=== PATIENT | male | born 1975 | race Caucasian/White ===

== ENCOUNTER 2019-11-13 14:24 | Observation (INO) ==
[2019-11-13] MEDS ORDERED: ONDANSETRON INJ 2 MG/ML 2 ML VIAL IV STA (15:24)
[2019-11-13] MEDS ORDERED: SODIUM CHLORIDE 0.9% 1000ML 2,000 ML IV ONE (15:24)
[2019-11-13] MEDS ORDERED: KETOROLAC TROMETHAMINE 15 MG/ML VIAL IV ONE (15:24)
--- NOTE | 2019-11-13 15:24 | Emergency Department Note ---
Impression & Plan BRUNILDA (acute kidney injury), Abdominal pain, Vomiting, Diarrhea, BRBPR (bright red blood per rectum), Leukocytosis, Elevated BUN ED Provider Note NAME: NERISSA MARINELLI JR AGE: 44 SEX: M : 1975 ARRIVES VIA: Walk-In INFORMANT: Patient ED PROVIDER(S): Raffi Santos DO CHIEF COMPLAINT: N/V/D HPI: Patient is a 44-year-old male who presents the ER for nausea, vomiting and diarrhea. Everything started this morning at 8:30 AM while he was working for [employer]. He notes he had 2 episodes where he could not get off the toilet for over an hour where he had persistent diarrhea. He denies any chest pain shortness of breath. Denies any dizziness or lightheadedness. Denies any dysuria urgency or frequency. He did note some bright red blood throughout his last bowel movement. He admits to persistent vomiting throughout the day as well. He has been only able to keep down small amount of clear liquids. ROS: See above HPI for pertinent positives & negatives. A total of 10 systems reviewed and were otherwise negative. PAST MEDICAL HISTORY:See Below PAST SURGICAL HISTORY:Spinal surgery FAMILY HISTORY:See Below SOCIAL HISTORY:smoke HOME MEDICATIONS:See Below ALLERGIES:See Below VITALS:See Below PHYSICAL EXAMINATION: GENERAL: Sitting up in bed, alert, well appearing, well nourished, no distress, non-toxic EYE EXAM: normal conjunctiva. OROPHARYNX: mucous membranes are dry NECK: supple, no nuchal rigidity, no adenopathy, non-tender LUNGS: Clear to auscultation. Normal chest wall mechanics HEART: no murmurs, S1 normal and S2 normal ABDOMEN: abdomen soft, non-tender, normo-active bowel sounds, no masses, no rebound or guarding. BACK: Back is symmetrical on inspection and there is no deformity, no midline tenderness, no CVA tenderness. SKIN: no rashes and no bruising UPPER EXTREMITIES: upper extremities are grossly normal. LOWER EXTREMITIES: No pitting edema. NEURO EXAM: Normal sensorium, cranial nerves II-XII grossly intact, normal spee ch, no gross weakness of arms, no gross weakness of legs. MEDICAL DECISION MAKING: Patient is a 44-year-old male who presents the ER for nausea vomiting diarrhea. He has been having bright red blood per rectum as well. IV was established blood work was obtained. Labs show leukocytosis of 18,000. Hemoglobin at 19 which appears secondary to dehydration. BMP with a creatinine 1.96. Patient has never had any previous creatinine issues. LFTs bilirubin was unremarkable. Lipase was normal. UA was contaminated with multiple epithelial cells. CT abdomen pelvis was unremarkable. He was given at 2 L IV fluid and IV Zofran. Stool cultures and C. difficile were ordered. Patient was updated bedside discussed with the hospitalist for the BRUNILDA and having difficulty keeping oral in. Do favor bright red blood per rectum secondary to an internal hemorrhoid from the profuse diarrhea although it could be infectious and will await cultures. Triage Nursing notes reviewed. Prior medical records reviewed Vital Signs: reviewed and remarkable for no significant abnormalities Differential diagnosis: Differential diagnoses includes but is not limited to gastritis, peptic ulcer disease, GERD, gallbladder disease, pancreatitis, small bowel obstruction, acute coronary syndrome, pericarditis, ischemic bowel, irritable bowel disease, irritable bowel syndrome, appendicitis, diverticulitis, malignancy, hernia, urinary tract infection, torsion, [/ectopic (if female)], perforation, trauma, infectious. ER treatment provided: See below Diagnostics interpreted by me: ECG: none Cardiac Monitoring: An order was placed for continuous cardiac monitoring. The monitor shows a rate of 82 with sinus rhythm. Laboratory studies: As stated above and show below. Imaging studies: CT abdomen pelvis shows no acute pathology Consultation(s): Discussed with Dr. Long from not any hospitalist ED COURSE: Procedures: none Critical Care: None Past Med/Surg History Social History Preferred Language: Sinhala Feels Safe at Home: Yes Smoking Status: Current every day smoker Allergies Allergies Allergy/AdvReac Type Severity Reaction Status Date / Time No Known Allergies Allergy Unknown Verified 05/28/14 13:51 Home Meds Home Medications Medication Instructions Recorded Confirmed acetaminophen [Tylenol] 325 mg PO BID PRN 11/13/19 11/13/19 herbal drugs 5 cap PO BID 11/13/19 11/13/19 ibuprofen 600 mg PO BID PRN 11/13/19 11/13/19 Results & Data (ED) Vital Signs Vital Signs - 24 hr 11/13/19 14:43 11/13/19 15:38 11/13/19 15:50 Temperature 36.7 C Temperature Source Oral Pulse Rate 127 H 88 Respiratory Rate 20 26 H Respiratory Effort / Characteristics Non-Labored Respiratory Depth Normal Blood Pressure 115/78 112/76 Blood Pressure Mean 90 90 Blood Pressure Position Sitting Pulse Oximetry 96 97 Oxygen Delivery Method Room Air Room Air Sepsis Recent Fever Within 48 Hours No Sepsis New/Unexplained Change in Mental Status No Sepsis Action Taken by Nursing No Action Required 11/13/19 15:57 11/13/19 16:00 Temperature Temperature Source Pulse Rate 90 86 Respiratory Rate 25 H 26 H Respiratory Effort / Characteristics Respiratory Depth Blood Pressure 105/76 Blood Pressure Mean 81 Blood Pressure Position Pulse Oximetry Oxygen Delivery Method Sepsis Recent Fever Within 48 Hours Sepsis New/Unexplained Change in Mental Status Sepsis Action Taken by Nursing Laboratory Data Result diagrams: 11/13/19 15:35 11/13/19 15:35 Lab Results 11/13/19 11/13/19 11/13/19 Range/Units 15:35 15:35 15:35 WBC 18.21 H (4.8-10.8) K/uL RBC 6.11 H (4.7-6.1) M/uL Hgb 19.4 H (14.0-18.0) g/dL Hct 55.1 H (42-52) % MCV 90.2 (80-100) fL MCH 31.8 (25-34) pg MCHC 35.2 (32-36) g/dL RDW Std Deviation 44.9 (36.4-46.3) fL RDW Coeff of [place]ta 13.6 (11.5-14.5) % Plt Count 254 (130-400) K/uL MPV 10.3 (7.4-10.4) fL Immature Gran % (Auto) 0.6 % Neut % (Auto) 87.0 % Lymph % (Auto) 3.0 % Dewitt % (Auto) 9.1 % Eos % (Auto) 0.2 % Baso % (Auto) 0.1 % Immature Gran # (Auto) 0.11 H (0.00-0.02) K/uL Neut # (Auto) 15.85 H (1.4-6.5) K/uL Lymph # (Auto) 0.55 L (1.2-3.4) K/uL Dewitt # (Auto) 1.65 H (0.11-0.59) K/uL Eos # (Auto) 0.03 (0-0.5) K/uL Baso # (Auto) 0.02 (0-0.2) K/uL Sodium 136 (136-145) mmol/L Potassium 5.0 (3.5-5.1) mmol/L Chloride 107 (98-107) mmol/L Carbon Dioxide 21 (21-32) mmol/L Anion Gap 8.0 (3-11) BUN 29 H (7-18) mg/dl Creatinine 1.96 H (0.6-1.4) mg/dl Est Cr Clr Drug Dosing 39.9 ml/min Est GFR ( Amer) 46.5 Est GFR (Non-Af Amer) 40.1 BUN/Creatinine Ratio 14.6 (10-20) Glucose 123 H (70-99) mg/dl Calcium 10.0 (8.5-10.1) mg/dl Total Bilirubin 0.9 (0.2-1) mg/dl AST 20 (15-37) U/L ALT 49 (12-78) U/L Alkaline Phosphatase 73 (45-117) U/L Total Protein 9.6 H (6.4-8.2) gm/dl Albumin 5.1 H (3.4-5.0) gm/dl Globulin 4.5 H (2.5-4.0) gm/dl Albumin/Globulin Ratio 1.1 (0.9-2) Lipase 72 L (73-393) U/L Urine Color Dark Yellow Urine Appearance Turbid A (Clear) Urine pH 5.0 (4.5-7.5) Ur Specific Felch 1.030 (1.000-1.030) Urine Protein 1+ H (Negative) Urine Glucose (UA) Negative (Negative) Urine Ketones Trace H (Negative) Urine Blood Negative (Negative) Urine Nitrite Negative (Negative) Urine Bilirubin Negative (Negative) Urine Urobilinogen Negative (Negative) Ur Leukocyte Esterase Trace H (Negative) Urine WBC (Auto) 5-10 H (0-5) /hpf Urine RBC (Auto) 10-30 H (0-4) /hpf U Hyaline Cast (Auto) 0 (0-5) /lpf U Epithel Cells (Auto) >30 H (0-5) /lpf Urine Bacteria (Auto) Negative (Negative) Ur Renal Epithelial Cell Not Reportable Administered Medications Nicotine (Nicoderm Cq) 21 mg TD QAM OLGA Stop: 07/03/20 16:44 Last Admin: 11/13/19 17:08 Dose: 21 mg Documented by: [id number] Discontinued Medications Sodium Chloride (Nss 1000ml) 2,000 mls @ 999 mls/hr IV .Q2H1M ONE Stop: 11/13/19 17:24 Last Admin: 11/13/19 15:46 Dose: 999 mls/hr Documented by: [id number] Ketorolac Tromethamine (Toradol) 10 mg IV NOW ONE Stop: 11/13/19 15:25 Last Admin: 11/13/19 15:46 Dose: 10 mg Documented by: [id number] Ondansetron HCl (Zofran) 4 mg IV NOW STA Stop: 11/13/19 15:25 Last Admin: 11/13/19 15:46 Dose: 4 mg Documented by: [id number] Discharge Plan Visit Data Chief Complaint: GI Assessment Stated Complaint: VOMITING/DIARRHEA WITH BLOOD IN STOOL ED Provider: Raffi Santos Discharge Problem: BRUNILDA (acute kidney injury), Abdominal pain, Vomiting, Diarrhea, BRBPR (bright red blood per rectum), Leukocytosis, Elevated BUN Forms Stand Alone Forms: [facility] [employer] Prescriptions Prescriptions: No Action acetaminophen [Tylenol] 325 mg Tablet 325 mg PO BID PRN (Reason: Pain) RF: 0 ibuprofen 200 mg Tablet 600 mg PO BID PRN (Reason: Pain) RF: 0 herbal drugs Capsule 5 cap PO BID RF: 0 glucosamine-chondroitin 500-400 mg Capsule 1 cap PO BID RF: 0 Discharge Problem: Abdominal pain Qualifiers: Abdominal location: unspecified location Qualified Code(s): R10.9 - Unspecified abdominal pain Vomiting Qualifiers: Vomiting type: unspecified Vomiting Intractability: unspecified Nausea presence: with nausea Qualified Code(s): R11.2 - Nausea with vomiting, unspecified Diarrhea Qualifiers: Diarrhea type: unspecified type Qualified Code(s): R19.7 - Diarrhea, unspecified Leukocytosis Qualifiers: Leukocytosis type: unspecified Qualified Code(s): D72.829 - Elevated white blood cell count, unspecified
[2019-11-13 15:49] LABS: Basophils # (auto) 0.02 K/uL (0-0.2); Basophils % (auto) 0.1 %; Eosinophils # (auto) 0.03 K/uL (0-0.5); Eosinophils % (auto) 0.2 %; Hematocrit (blood only) 55.1 % (42-52); Hemoglobin 19.4 g/dL (14.0-18.0); Immature Granulocytes # (auto) 0.11 K/uL (0.00-0.02); Immature Granulocytes % (auto) 0.6 %; Lymphocytes # (auto) 0.55 K/uL (1.2-3.4); Mean Corpuscular Hemoglobin 31.8 pg (25-34); Mean Corpuscular Volume 90.2 fL (80-100); Mean Platelet Volume 10.3 fL (7.4-10.4); Monocytes # (auto) 1.65 K/uL (0.11-0.59); Monocytes % (auto) 9.1 %; Neutrophils # (auto) 15.85 K/uL (1.4-6.5); Platelet Count 254 K/uL (130-400); RDW Coefficient of Variation 13.6 % (11.5-14.5); RDW Standard Deviation 44.9 fL (36.4-46.3); Red Blood Count 6.11 M/uL (4.7-6.1); White Blood Count 18.21 K/uL (4.8-10.8)
[2019-11-13 15:56] LABS: Appearance Urine Turbid (Clear); Bacteria Urine Automated Negative (Negative); Blood Urine Negative (Negative); Color Urine Dark Yellow; Epithelial Cell Urine Auto >30 /lpf (0-5); Glucose Urine UA Negative (Negative); Ketones Urine Trace (Negative); Leukocyte Esterase Urine Trace (Negative); Nitrite Urine Negative (Negative); Protein Urine 1+ (Negative); Urobilinogen Urine Negative (Negative)
[2019-11-13 16:04] LABS: Mean Corpuscular Hgb Conc 35.2 g/dL (32-36)
[2019-11-13 16:07] LABS: Bilirubin Urine Negative (Negative); Ictotest Urine Negative (Negative)
[2019-11-13 16:08] LABS: Albumin Level 5.1 gm/dl (3.4-5.0); BUN Creatinine Ratio 14.6 (10-20); Creatinine Clr Calc Pharmacy 39.9 ml/min; Est GFR (African American) 46.5; Est GFR (Non-African American) 40.1
[2019-11-13 16:10] LABS: Albumin Globulin Ratio 1.1 (0.9-2); Bilirubin,Total 0.9 mg/dl (0.2-1); Globulin 4.5 gm/dl (2.5-4.0); Total Protein 9.6 gm/dl (6.4-8.2)
[2019-11-13 16:21] LABS: Cast Urine Automated 0 /lpf (0-5)
--- NOTE | 2019-11-13 16:39 | CT Scan Report ---
CT abd pelvis wo con CT DOSE: 309.29 mGy.cm HISTORY: Pain. Nausea. diffuse abd pain w/ gi bleed and darin TECHNIQUE: Multiaxial CT images of the abdomen and pelvis were performed without contrast. A dose lo wering technique was utilized adhering to the principles of ALARA. COMPARISON STUDY: None. FINDINGS: The lung bases are clear. The unenhanced liver, spleen, gallbladder, pancreas, kidneys, and adrenal glands are within normal limits. No bowel wall thickening or obstruction. The pelvic organs are unremarkable. No suspicious lytic or blastic osseous lesions. IMPRESSION: No significant abnormality identified within the abdomen or pelvis. ACT 112: Negative or not required by law. The above report was generated using voice recognition software. It may contain grammatical, syntax or spelling errors. Electronically signed by: Frank Ambrose M.D. 11/13/2019 4:38 PM
[2019-11-13] MEDS: NICOTINE 21 MG/24 HR TDSY TD SCH (17:08)
--- NOTE | 2019-11-13 17:55 | History & Physical Report ---
Date of Service November 13, 2019 Assessment & Plan (1) Diarrhea: Patient is admitted under obs. Concern over c diff colitis and covid, given his: -elevated procal. -Ddimer is elevated Lymphopenia and leukocytosis. will obtain covid testing. will place on IVF. will place on heparin as he is hemoconcentrated. (2) BRUNILDA (acute kidney injury): likely pre renal given his diarrhea. will continue to monitor. continue aggressive IV fluids. (3) Leukocytosis: Patient will be monitored. currently afebrile, and no longer tachycardic. will hold off further antibiotics. H/O lumbar back pain: controlled will monitor. dvt pro: heparin History of Present Illness Chief Complaint: vomiting and diarrhea Primary Care Provider: Ashanti Churchill 44 yo male with no signficant past medical history arrives to the hospital with acute diarrhea and vomiting. He reports yesterday he denied any symptoms and he was his usual self. He reports that this episode began this morning. He was working at [employer] and began to have nausea and vomiting. He then states from 9:00 to 10:00 he noted large amount of diarrhea and he had to stay on the toilet. This then repeated at 12:00 to 13:00. He noticed some blood in his stool. He called his life partner who is a pediatric nurse and recommended that he come to the hospital Patient came to the hospital for long bots of nausea vomiting and diarrhea. He denies any sick contacts. Allergies Allergy/AdvReac Type Severity Reaction Status Date / Time lactose AdvReac Gastrointestinal Unverified 11/13/19 17:30 Upset Home Medications Home Medications Medication Instructions Recorded Confirmed Type acetaminophen [Tylenol] 325 mg PO BID PRN 11/13/19 11/13/19 History glucosamine-chondroitin 1 cap PO BID 11/13/19 11/13/19 History herbal drugs 5 cap PO BID 11/13/19 11/13/19 History ibuprofen 600 mg PO BID PRN 11/13/19 11/13/19 History Past Med/Surg History Medical History (Updated 11/14/19 @ 08:00 by Steve Long) Lumbar stenosis Surgical History (Updated 11/14/19 @ 08:00 by Steve Long) S/P lumbar microdiscectomy Social History Preferred Language: Portuguese Beliefs That Will Affect Care: None Current Living Situation: Family Other Information That Helps Us Care for You: No Feels Safe at Home: Yes Safety Concerns: Feels Safe At This Time Smoking Status: Current every day smoker Hx Alcohol Use: No Hx Substance Use: No Review of Systems Constitutional: + fever; no sweats, no body aches, no malaise and no weakness Eyes: no blind spots and no diplopia Ear, Nose, Mouth, Throat: no ear pain, no ear trauma and no tinnitus Respiratory: no cough, no change in sputum and no dyspnea Cardiovascular: no chest pain Gastrointestinal: no abdominal pain Genitourinary: no dysuria Musculoskeletal: no back pain and no radicular pain Integumentary: no acne and no lesions Neurologic: no gait abnormality Psychiatric: no behavioral changes Physical Exam Constitutional: WD/WN, vitals as above well developed Eyes: PERRL, conjunctivae normal, anicteric sclerae ENMT: external ear and nose normal, oropharynx normal Neck: trachea midline, no thyromegaly Respiratory: normal respiratory effort, lungs clear to auscultation Cardiovascular: RRR, no murmur, no edema Gastrointestinal (Abdomen): normal bowel sounds, soft, nontender, no hepatosplenomegaly Musculoskeletal: no cyanosis or clubbing, extremities motor strength 5/5 Skin: no rashes, warm and dry Neurologic: PERRL, EOMI, accommodation nl, no face palsy, no dysarthria Psychiatric: A+Ox3, euthymic affect Results & Data Results & Data ([facility]) Vital Signs (Past 12 Hours) Vital Signs Temp Pulse Resp BP Pulse Ox 11/13/19 16:00 86 26 H 105/76 11/13/19 15:57 90 25 H 11/13/19 15:50 97 11/13/19 15:38 88 26 H 112/76 11/13/19 14:43 36.7 C 127 H 20 115/78 96 PG Care Time/CCT Total # of Minutes Spent Total Time Spent with Patient: Total time spent is greater than 50% in coordination of care (as documented) at patient's floor/unit and/or counseling patient: Coding Level of Care Code 44653 OBS Care - Level 3 Diagnoses Diarrhea R19.7 Diarrhea type: unspecified type BRUNILDA (acute kidney injury) N17.9 Leukocytosis D72.829 Leukocytosis type: unspecified (1) Diarrhea Diarrhea type: unspecified type Qualified Code(s): R19.7 - Diarrhea, unspecified (2) Leukocytosis Leukocytosis type: unspecified Qualified Code(s): D72.829 - Elevated white blood cell count, unspecified
[2019-11-13 18:43] LABS: D Dimer 1690 ug/L FEU (0-500)
[2019-11-13] MEDS ORDERED: ONDANSETRON INJ 2 MG/ML 2 ML VIAL IV PRN (19:01)
[2019-11-13 19:22] LABS: C Reactive Protein 1.45 mg/dl (0-0.29)
[2019-11-13] MEDS: LACTATED RINGER'S 1,000 ML IV SCH (20:30)
[2019-11-13] MEDS: HEPARIN SOD 5,000 UNIT/0.5 ML VIAL SQ SCH (21:32)
[2019-11-13] MEDS ORDERED: SODIUM CHLORIDE 0.65% NA SOLN 45 ML (OCEAN) PRN (21:33)
[2019-11-14] MEDS: LACTATED RINGER'S 1,000 ML IV SCH (02:03)
[2019-11-14] MEDS: HEPARIN SOD 5,000 UNIT/0.5 ML VIAL SQ SCH (05:41)
[2019-11-14 08:15] LABS: BUN Creatinine Ratio 25.2 (10-20); Calcium 8.4 mg/dl (8.5-10.1); Creatinine Clr Calc Pharmacy 80.5 ml/min; Est GFR (African American) 108.8; Est GFR (Non-African American) 93.9; Magnesium 2.1 mg/dl (1.8-2.4)
[2019-11-14 08:34] LABS: Phosphorus 1.5 mg/dl (2.5-4.9)
[2019-11-14 08:43] LABS: Basophils # (auto) 0.01 K/uL (0-0.2); Basophils % (auto) 0.1 %; Eosinophils # (auto) 0.16 K/uL (0-0.5); Eosinophils % (auto) 1.6 %; Hematocrit (blood only) 43.2 % (42-52); Hemoglobin 14.5 g/dL (14.0-18.0); Immature Granulocytes # (auto) 0.02 K/uL (0.00-0.02); Immature Granulocytes % (auto) 0.2 %; Lymphocytes # (auto) 2.53 K/uL (1.2-3.4); Lymphocytes % (auto) 25.3 %; Mean Corpuscular Hemoglobin 30.5 pg (25-34); Mean Corpuscular Hgb Conc 33.6 g/dL (32-36); Mean Corpuscular Volume 90.9 fL (80-100); Mean Platelet Volume 10.5 fL (7.4-10.4); Monocytes # (auto) 0.88 K/uL (0.11-0.59); Monocytes % (auto) 8.8 %; Neutrophils # (auto) 6.39 K/uL (1.4-6.5); Platelet Count 232 K/uL (130-400); RDW Coefficient of Variation 13.8 % (11.5-14.5); RDW Standard Deviation 45.5 fL (36.4-46.3); Red Blood Count 4.75 M/uL (4.7-6.1); White Blood Count 9.99 K/uL (4.8-10.8)
[2019-11-14] MEDS: NICOTINE 21 MG/24 HR TDSY TD SCH (08:54)
[2019-11-14] MEDS ORDERED: POT PHOSPHATE MONOBASIC W/ SOD TAB PO SCH (09:00)
--- NOTE | 2019-11-20 14:16 | Discharge Summary ---
Date of Service November 14, 2019 Admission HPI Per Admitting Provider 44 yo male with no signficant past medical history arrives to the hospital with acute diarrhea and vomiting. He reports yesterday he denied any symptoms and he was his usual self. He reports that this episode began this morning. He was working at [employer] and began to have nausea and vomiting. He then states from 9:00 to 10:00 he noted large amount of diarrhea and he had to stay on the toilet. This then repeated at 12:00 to 13:00. He noticed some blood in his stool. He called his life partner who is a pediatric nurse and recommended that he come to the hospital Patient came to the hospital for long bots of nausea vomiting and diarrhea. He denies any sick contacts. Principal Diagnosis Acute diarrhea Discharge Exam Constitutional WD/WN, vitals as above well developed Eyes PERRL, conjunctivae normal, anicteric sclerae ENMT external ear and nose normal, oropharynx normal Neck trachea midline, no thyromegaly Respiratory normal respiratory effort, lungs clear to auscultation Cardiovascular RRR, no murmur, no edema Gastrointestinal (Abdomen) normal bowel sounds, soft, nontender, no hepatosplenomegaly Musculoskeletal no cyanosis or clubbing, extremities motor strength 5/5 Skin no rashes, warm and dry Neurologic PERRL, EOMI, accommodation nl, no face palsy, no dysarthria Psychiatric A+Ox3, euthymic affect Discharge Data Allergies Allergy/AdvReac Type Severity Reaction Status Date / Time lactose AdvReac Gastrointestinal Unverified 11/13/19 17:30 Upset Consultations 11/13/19 16:52 ED Decision to Admit Stat Ordered Studies 11/13/19 16:13 CT abd pelvis wo con Stat Hospital Course (1) Diarrhea: Patient is admitted under obs. On admission there was concern over c diff colitis and covid, given his: -elevated procal. -Ddimer is elevated Lymphopenia and leukocytosis. Placed on IVF. will place on heparin as he is hemoconcentrated. check stool cultures as well. On the following day: Patient improved, WBC normalized. No longer having blood in his stools. Patient may require colonscopy in the future to check for Inflammatory bowel. will defer to PCP. D/W patient and his partner who is a nurse over the phone. (2) BRUNILDA (acute kidney injury): improved. will check BMP within 1 week. Hypophosphatemia: Will check levels within 1 week. (3) Leukocytosis: Patient will be monitored. currently afebrile, and no longer tachycardic. will hold off further antibiotics. H/O lumbar back pain: controlled will monitor. Patient will f/u with PCP. Obtained appointment for patient. Total Time Total Time Spent Total Time Spent (In Minutes): 32 Discharge Plan Discharge Items Patient Disposition: Home - Self-Care Reason For Visit: ACUTE RENAL FAILURE,DIARRHEA Discharge Diagnosis: acute kidney failure from diarrhea Activity: Resume your previous activity Non-emergency contact: Primary Care Provider Call non-emergency contact if: you have any medication questions Follow-up/Referrals: Guy Paiz [Staff Physician] - (Please, follow up at [facility] with Dr. Paiz, Dr. Urban, or one of their physician community program assistant. *A nurse from this office is supposed to contact you with the appointment information. If you have any questions, call their office at [phone]. TO APPLY FOR REDUCED FEES THROUGH THE PHYSICIAN'S OFFICE, CALL [facility] AT [phone] AND ASK TO SPEAK WITH LIZZETTE SHERIDAN. SHE WILL HELP YOU WITH THE APPLICATION PROCESS.) Diet: Regular Addtl Attending Provider Instructions: You have been hospitalized for an acute medical problem: You had severe diarrhea which made you dehydrated. We checked for severe causes of diarrhea: including c. diff and covid 19. On the following day, your labs improved. Your only abnormality is phosphorus which is low. We will order a replacement and have you check a phosphorus tomorrow. Will recommend followup with PCP in 1-2 weeks. Keep a diary of your bowel movement: consistency, amount, if bloody, and date and time. Bring diary to appointment: of PCP. Drink fluids after each watery bowel movement. Pending Studies at Discharge: Yes (checking phosphorus in AM.) Stand-Alone Forms: [facility] [employer], Work/School Release (Inpt), Smoking Cessation Medications and DC Order Prescriptions: New Phospha 250 Neutral 250 mg Tablet 2 tab PO QID Qty: 8 RF: 0 Continued acetaminophen [Tylenol] 325 mg Tablet 325 mg PO BID PRN (Reason: Pain) RF: 0 ibuprofen 200 mg Tablet 600 mg PO BID PRN (Reason: Pain) RF: 0 herbal drugs Capsule 5 cap PO BID RF: 0 glucosamine-chondroitin 500-400 mg Capsule 1 cap PO BID RF: 0 Discharge Orders: Discharge Order (Routine); Ordered 11/14/19 Ordered By: Steve Long Admission Data Admit Date/Time: 11/13/19 17:53 Attending Provider: Steve Long Admit Provider: Steve Long Primary Care Provider: Ashanti Churchill Other Providers: Steve Long Other Interventions: Discharge Summary Assessment (RN) Last Done: 11/14/19 10:27 DC Date/Time DO NOT enter until pt leaves facility: 11/14/19 11:15 Coding Level of Care Code D/C Day Management >30 mins Diagnoses Diarrhea R19.7 Diarrhea type: unspecified type BRUNILDA (acute kidney injury) N17.9 Leukocytosis D72.829 Leukocytosis type: unspecified
== END 2019-11-14 11:15 | disposition home or self-care (01) ==
LOC: ED 14:24 → 3N 14:24 → 2S 20:15